=== PATIENT | male | born 1970 | race Caucasian/White ===

== ENCOUNTER 2020-02-02 16:22 | Emergency (ER) | payer OTHER, SELFPAY ==
--- NOTE | ~2020-02-02 | XR_ITS ---
EXAMINATION: XR chest 2V EXAM DATE: 02/02/2020 20:14 INDICATION: Cough, fatigue. Coronary artery disease. History of CT. TECHNIQUE: Frontal and lateral projections of the chest obtained and reviewed. Comparison is made to prior examination from 10/07/2017. FINDINGS: The lungs are clear. There are no pleural effusions. The cardiomediastinal silhouette is within normal limits. There is no pneumothorax suspected. The bones and soft tissues are unremarkab le. IMPRESSION: No acute cardiopulmonary findings. Reviewed, dictated and finalized at location A.
--- NOTE | ~2020-02-02 | XR_ITS ---
EXAMINATION: XR abdomen/kub 1V EXAM DATE: 02/02/2020 20:14 INDICATION: Hematuria. Left flank pain. TECHNIQUE: Frontal projection(s) of the abdomen for interpretation. Correlation is made to CT abdomen pelvis same date. FINDINGS: There is expected amount of colonic stool and gas. No small bowel dilation, nonobstructiv e bowel gas pattern. There are no suspicious calcifications identified. There is no organomegaly suspected. The bones are unremarkable. Lung bases are clear. IMPRESSION: Unremarkable abdomen x-ray exam. Reviewed, dictated and finalized at location A.
--- NOTE | ~2020-02-02 | CT_ITS ---
EXAMINATION: CT abdomen pelvis wo con EXAM DATE: 02/02/2020 19:58 INDICATION: Left flank pain. TECHNIQUE: Spiral CT of the abdomen and pelvis was performed without contrast. Axial, coronal and sag ittal images were reviewed. The dose-length product (DLP) for this examination was 568.07 mGy-cm. T he exposure was tailored according to patient size (auto mA exposure control), and iterative reconstr uction (ASIR) was used as additional dose reduction technique. Comparison is made to prior examinatio n from 01/01/2008. FINDINGS: There is no nephrolithiasis or hydronephrosis. The prostate is unremarkable. The bladder is unremarkable. The liver, spleen, adrenal glands and pancreas are unremarkable. Gallbladder is u nremarkable. No biliary obstruction. There is no retroperitoneal or pelvic lymphadenopathy. There is moderate-sized umbilical fat-containing hernia, herniated portion measuring 7 cm in diameter with the mouth measuring 3 cm. The appendix is normal. The stomach and small bowel are unremarkable. There is expected amount of c olonic stool. No free intraperitoneal gas. The heart is normal in size. There are no pericardial or pleural effusions. The lung bases are unremarkable. The bones are unremarkable. IMPRESSION: 1. No nephrolithiasis, hydronephrosis or acute intra-abdominal findings. 2. Moderate-sized umbilical fat-containing hernia. Reviewed, dictated and finalized at location A.
[2020-02-02 16:25] VITALS: BP 130/80; PULSE 99; RESP 18; TEMP 36.3; O2SAT 100
[2020-02-02 16:59] LABS: Hemoglobin 13.8 g/dL (14.0-18.0); Mean Corpuscular HGB Conc 33.7 g/dl (32-36); Mean Corpuscular Hemoglobin 27.4 pg (26-34); Mean Corpuscular Volume 81.5 fl (80-100); Mean Platelet Volume 9.5 fl (7.4-10.4); Platelet Count Result 201 k/mm3 (150-375); Red Blood Count 5.03 M/mm3 (4.6-6.20); Red Cell Distribution Width 13.2 % (11.5-14.5); White Blood Count 3.6 K/mm3 (4.5-10.0)
[2020-02-02 17:12] LABS: Add Urine Microscopic? YES; Appearance Urine Clear (Clear); Bilirubin Urine Negative (Negative); Blood Urine Negative (Negative); Color Urine Yellow (Yellow); Glucose Urine UA Negative (Negative); Ketones Urine Negative (Negative); Leukocyte Esterase Ur Negative LEU/UL (Negative); Mucus Urine Moderate /lpf; Nitrate Urine Negative (Negative); Protein Urine 1+ mg/dL (Negative); RBC Urine 0-2 /hpf (0-2); Specific Grav Ur 1.028 (1.001-1.035); Urobilinogen Urine Negative mg/dL (<2.0); WBC Urine 0-3 /hpf
[2020-02-02 17:33] LABS: Band Neutrophils Percent 10 % (0-6); Lymphocytes Absolute Manual 1.69 K/mm3 (1.1-4.5); Monocytes Absolute Manual 0.57 K/mm3 (0.1-0.90); Monocytes Percent Manual 16 % (3-9); Neutrophils Absolute Manual 1.33 K/mm3 (1.3-6.7); Neutrophils Percent Manual 27 % (46-73); Total Cells Counted 100
[2020-02-02 17:34] LABS: Atypical Lymphocytes Present; Giant Platelets Present; Platelet Estimate Adequate (Adequate)
[2020-02-02 17:49] LABS: Blood Urea Nitrogen 16 mg/dL (9-20); Calcium 9.1 mg/dL (8.4-10.2); Carbon Dioxide 24 mmol/L (22-30); Chloride 101 mmol/L (98-107); Estimated Glomerular Filt Rate > 60; Glucose 84 mg/dL (75-110); Potassium 4.3 mmol/L (3.4-5.0); Sodium 136 mmol/L (137-145)
--- NOTE | 2020-02-02 19:28 | ECG_ITS ---
Measurements Intervals [place] Rate: 72 P: 67 IA: 173 QRS: 64 QRSD: 82 T: 51 QT: 361 QTc: 396 Interpretive Statements SINUS RHYTHM BASELINE WANDER- I, V2 NORMAL ECG Electronically Signed On 02-03-2020 7:10:16 CDT by Emeka Tolentino D.O.
--- NOTE | 2020-02-02 19:29 | ED.GENADULT ---
HPI - General Adult General Chief complaint: Abdominal Pain Stated complaint: flank pain/blood in urine Time Seen by Provider: 02/02/20 19:03 Source: patient Mode of arrival: ambulatory Limitations: no limitations History of Present Illness HPI narrative: 49 yo male who presents with c/o left lower back pain intermittently since Sunday. Patient states he has been restless and having difficulty sleeping due to some left lower back pain. He also reports mild discomfort radiating to his left lower abdomen. His pain seems worse with movement. He denies numbness, tingling or weakness. He states that he went to Urgent care today and she reported that he has blood in his urine. He has not noticed blood in his urine but he has noticed that his urine will changed color. He denies fever or chills. He reports his pain is minimal now. He denies headache, shortness of breath. He states he only has a cough due to his allergies. HE denies chest pain. Onset (ago): day(s) (2) Quality: aching and dull Pain Consistency: intermittent Exacerbating factors: movement Related Data Home Medications Medication Instructions Recorded Confirmed aspirin 81 mg PO DAILY 02/02/20 atorvastatin 20 mg PO DAILY 02/02/20 evolocumab [Repatha SureClick] 140 mg SUBCUT ONCE 02/02/20 lisinopril 20 mg PO DAILY 02/02/20 loratadine [Claritin] 10 mg PO DAILY 02/02/20 metoprolol tartrate 12.5 mg PO BID 02/02/20 ticagrelor [Brilinta] 60 mg PO Q12H 02/02/20 Allergies Allergy/AdvReac Type Severity Reaction Status Date / Time No Known Allergies Allergy Verified 02/02/20 16:28 Review of Systems Review of Systems: All systems reviewed & are unremarkable except as noted in HPI and below Constitutional: Constitutional: Denies chills and Denies fever(s) Cardiovascular: Cardiovascular: Denies chest pain and Denies radiating jaw, neck or arm pain Respiratory: Respiratory: Reports cough (says due to allergies) and Denies dyspnea Gastrointestinal: Gastrointestinal: Reports abdominal pain, Reports constipation, Denies diarrhea, Reports nausea and Denies vomiting Genitourinary: Genitourinary: Reports urinary frequency Comments: change in color to urine PMFSH Past Medical History Medical History (Updated 02/03/20 @ 00:00 by Background Daemon) Coronary artery disease Hyperlipidemia Surgical History Surgical History (Updated 02/02/20 @ 19:31 by Lou Freeman MD) Stented coronary artery Exam Narrative: Exam Narrative: GENERAL: Well-appearing, well-nourished, and in no acute distress. HEAD: Normocephalic, atraumatic EYES: PERRLA and EOMI, conjunctiva clear without discharge THROAT:Mucous membranes moist, Oropharynx normal without erythema, exudate, peritonsillar swelling or fluctuance NECK: Supple, without lymphadenopathy or mass RESPIRATORY: No respiratory distress, Airway patent, Respirations non-labored, Clear to auscultation without rales, rhonchi or wheeze HEART: Regular rate and rhythm. No murmur heard. Normal peripheral pulses. ABDOMEN: Soft, nontender, nondistended, normal active bowel sounds. No masses. No rebound or guarding, No organomegaly. soft umbilical hernia EXTREMITIES: No edema, normal strength with full range of motion. SKIN: Warm, dry, normal color without rash NEURO: Alert and oriented x3. CN 2-12 grossly intact. No focal deficits. PSYCH: Normal mood and affect. Course Reevaluation(s) Reevaluation #1: I discussed with patient that his labs showed low wbc count and he should follow up with PCP for further evaluation . Date: 02/02/20 Time: 21:17 Vital Signs Vital signs: Vital Signs Temperature 97.3 F L 02/02/20 16:25 Pulse Rate 99 02/02/20 16:25 Respiratory Rate 18 02/02/20 16:25 Blood Pressure 130/80 02/02/20 16:25 Pulse Oximetry 100 02/02/20 16:25 Temperature 97.9 F 02/02/20 21:35 Pulse Rate 74 02/02/20 21:35 Respiratory Rate 16 02/02/20 21:35 Blood Pressure 114/66
[2020-02-02 19:50] LABS: Alanine Aminotransferase 55 U/L (4-50); Albumin Level 4.5 g/dL (3.5-5.1); Alkaline Phosphatase 86 U/L (38-126); Aspartate Amino Transferase 42 U/L (17-59); Bilirubin,Total 0.4 mg/dL (0.2-1.3); Lipase 321 U/L (23-300)
[2020-02-02 21:35] VITALS: BP 114/66; PULSE 74; RESP 16; TEMP 36.6; O2SAT 97
== END 2020-02-02 21:37 | disposition home or self-care (01) ==
PROVIDERS: Emergency Medicine; Emergency Provider General Practice; PCP Emergency Medicine
DX: M54.5 Low back pain (principal); I25.10 Atherosclerotic heart disease of native coronary artery without angina pectoris; E78.5 Hyperlipidemia, unspecified; Z95.1 Presence of aortocoronary bypass graft
CPT/HCPCS: 36415; 71046; 74018; 74176; 80048; 80076; 81001; 83690; 85025; 93005; 99284

== ENCOUNTER 2021-03-24 18:25 | Emergency (ER) | payer OTHER, SELFPAY ==
[2021-03-24] VITALS (22 sets, daily range): BP systolic 129–179; BP diastolic 80–98; PULSE 53–76; RESP 6–18; TEMP 36.3; O2SAT 90–100
--- NOTE | ~2021-03-24 | XR_ITS ---
EXAMINATION: XR chest 2V EXAM DATE: 03/24/2021 18:39 INDICATION: cp into left arm, dizziness, hx of hypertension and stents. TECHNIQUE: Frontal and lateral projections of the chest obtained and reviewed. Comparison is made to prior examination from 02/02/2020. FINDINGS: The lungs are clear. There are no pleural effusions. The cardiomediastinal silhouette is within normal limits. There is no pneumothorax suspected. The bones and soft tissues are unremarkab le. IMPRESSION: No acute cardiopulmonary findings. Reviewed, dictated and finalized at location A.
--- NOTE | 2021-03-24 18:32 | ECG_ITS ---
Measurements Intervals [place] Rate: 70 P: 69 NC: 146 QRS: 52 QRSD: 94 T: 30 QT: 381 QTc: 412 Interpretive Statements SINUS RHYTHM INCOMPLETE RIGHT BUNDLE BRANCH BLOCK BASELINE ARTIFACT- I, II, III, AVR, AVL, AVF, V1-V6 BORDERLINE ECG Electronically Signed On 03-24-2021 19:06:33 CDT by Emeka Tolentino D.O.
[2021-03-24 18:39] LABS: Basophils Percent Auto 0.6 % (0.2-1.2); Eosinophils Absolute Auto 0.1 K/mm3 (0-0.3); Eosinophils Percent Auto 0.9 % (0-4.4); Hematocrit 41.8 % (42.0-52.0); Hemoglobin 13.8 g/dL (14.0-18.0); Immature Granulocyte Absolute 0.05 K/mm3 (0.00-0.031); Immature Granulocyte Percent A 0.7 % (0-0.5); Lymphocytes Absolute Auto 1.68 K/mm3 (0.9-3.2); Lymphocytes Percent Auto 24.7 % (18.3-44.2); Mean Corpuscular Hemoglobin 27.4 pg (26-34); Mean Corpuscular Volume 83.1 fl (80-100); Mean Platelet Volume 8.8 fl (7.4-10.4); Monocytes Absolute Auto 0.7 K/mm3 (0.1-0.6); Monocytes Percent Auto 10.4 % (2.6-8.5); Neutrophils Absolute Auto 4.3 K/mm3 (1.3-6.7); Neutrophils Percent Auto 62.7 % (45.5-73.1); Platelet Count Result 277 k/mm3 (150-375); Red Blood Count 5.03 M/mm3 (4.6-6.20); Red Cell Distribution Width 13.8 % (11.5-14.5); White Blood Count 6.8 K/mm3 (4.5-10.0)
--- NOTE | 2021-03-24 18:45 | ED.GENADULT ---
HPI - General Adult General Chief complaint: Chest Pain Stated complaint: Chest Pain Time Seen by Provider: 03/24/21 18:42 Source: patient Mode of arrival: ambulatory Limitations: no limitations History of Present Illness HPI narrative: Patient is here for evaluation of chest pain and left arm tingling that started 4 days ago. He was also having some lightheadedness, it is all intermittent. He has a cardiac history of 2 cardiac stents last placed at least 2 years ago. Saw his baling machine tender last in September and he did not call him regarding this episode. He is taking all his medications as prescribed. Onset (ago): day(s) Radiation: non-radiation Pain Consistency: intermittent Relieving factors: none Exacerbating factors: none Treatments prior to arrival: none Related Data Home Medications Medication Instructions Recorded Confirmed aspirin 81 mg PO DAILY 02/02/20 atorvastatin 20 mg PO DAILY 02/02/20 evolocumab [Repatha SureClick] 140 mg SUBCUT ONCE 02/02/20 lisinopril 20 mg PO DAILY 02/02/20 metoprolol tartrate 12.5 mg PO BID 02/02/20 ticagrelor [Brilinta] 60 mg PO Q12H 02/02/20 fluticasone propionate [Flonase] 1 spray INTRANASAL BID 03/24/21 Allergies Allergy/AdvReac Type Severity Reaction Status Date / Time No Known Allergies Allergy Verified 03/24/21 18:33 Review of Systems Review of Systems: All systems reviewed & are unremarkable except as noted in HPI and below PMFSH Past Medical History Medical History Coronary artery disease Hyperlipidemia Surgical History Surgical History Stented coronary artery Social History Social History Gender identity (if verbalized by the patient): Male Course Course Emergency Course: Reviewed labs with patient. He states that he has been able to sleep while here, but occasionally he feels his heart flutter . Labs reviewed with patient again they were all normal. As was his EKG. Patient has not stood up since he has been here so we will do orthostatic blood pressures make sure he does not feel lightheaded anymore. Will recommend follow-up with his baling machine tender at the first available date. blood pressures reassuring. Vital Signs Vital signs: Vital Signs Temperature 36.3 C L 03/24/21 18:29 Pulse Rate 74 03/24/21 18:29 Respiratory Rate 18 03/24/21 18:29 Blood Pressure 179/91 H 03/24/21 18:29 Pulse Oximetry 98 03/24/21 18:29 Temperature 36.3 C L 03/24/21 18:29 Pulse Rate 63 03/24/21 22:02 Respiratory Rate 6 L 03/24/21 22:02 Blood Pressure 169/92 H 03/24/21 22:02 Pulse Oximetry 95 03/24/21 22:02 Medical Decision Making Vital Signs Vital Signs: Vital Signs Temperature 36.3 C L 03/24/21 18:29 Pulse Rate 74 03/24/21 18:29 Respiratory Rate 18 03/24/21 18:29 Blood Pressure 179/91 H 03/24/21 18:29 Pulse Oximetry 98 03/24/21 18:29 Temperature 36.3 C L 03/24/21 18:29 Pulse Rate 63 03/24/21 22:02 Respiratory Rate 6 L 03/24/21 22:02 Blood Pressure 169/92 H 03/24/21 22:02 Pulse Oximetry 95 03/24/21 22:02 Lab Data Result diagrams: 03/24/21 18:34 03/24/21 18:34 Labs: Lab Results 03/24/21 03/24/21 03/24/21 Range/Units 18:34 18:34 18:34 WBC 6.8 (4.5-10.0) K/mm3 RBC 5.03 (4.6-6.20) M/mm3 Hgb 13.8 L (14.0-18.0) g/dL Hct 41.8 L (42.0-52.0) % MCV 83.1 (80-100) fl MCH 27.4 (26-34) pg MCHC 33.0 (32-36) g/dl RDW 13.8 (11.5-14.5) % Plt Count 277 (150-375) k/mm3 MPV 8.8 (7.4-10.4) fl Immature Gran % (Auto) 0.7 H (0-0.5) % Neut % (Auto) 62.7 (45.5-73.1) % Lymph % (Auto) 24.7 (18.3-44.2) % Mclean % (Auto) 10.4 H (2.6-8.5) % Eos % (Auto) 0.9 (0-4.4) % Baso % (Auto) 0.6 (0.2-1.2) % Lymph # (Auto) 1.68 (0.9-3.2) K/mm3 Mclean # (Auto) 0.7 H (0.1-0.6) K/mm3 Eos # (Auto) 0.1
[2021-03-24] MEDS: ASPIRIN 81 MG CHEWABLE TABLET 243 MG PO (18:54)
[2021-03-24 18:56] LABS: Anion Gap 10 mmol/L (8-16); Blood Urea Nitrogen 17 mg/dL (9-20); Calcium 9.6 mg/dL (8.4-10.2); Carbon Dioxide 23 mmol/L (22-30); Chloride 107 mmol/L (98-107); Estimated CRCL calculation 108 ml/min; Estimated Glomerular Filt Rate > 60; Glucose 82 mg/dL (75-110); Potassium 3.9 mmol/L (3.4-5.0); Sodium 140 mmol/L (137-145)
[2021-03-24 19:08] LABS: Troponin I < 0.012 ng/mL (0.000-0.034)
[2021-03-24 19:09] LABS: INR 0.9; Partial Thromboplastin Time 25.8 SECONDS (22.3-36.8); Prothrombin Time 12.5 Seconds (11.1-14.7)
[2021-03-24 22:18] LABS: Troponin I < 0.012 ng/mL (0.000-0.034)
== END 2021-03-24 23:07 | disposition home or self-care (01) ==
PROVIDERS: Emergency Provider Emergency Medicine; PCP Emergency Medicine
DX: R07.9 Chest pain, unspecified (principal); R42 Dizziness and giddiness; I25.10 Atherosclerotic heart disease of native coronary artery without angina pectoris; E78.5 Hyperlipidemia, unspecified; Z95.5 Presence of coronary angioplasty implant and graft; Z79.82 Long term (current) use of aspirin; I45.10 Unspecified right bundle-branch block
CPT/HCPCS: 36415; 71046; 80048; 84484; 85025; 85610; 85730; 93005; 99284; A9270

== ENCOUNTER 2021-05-18 01:56 | Day surgery (SDC) | payer OTHER, SELFPAY ==
[2021-05-13 15:54] VITALS: BMI 30.9
--- NOTE | 2021-05-17 13:39 | WPDANESEPPF ---
Anes - Initial Pre Proc Eval Procedure: Operation Date: 05/18/21 13:30 Proposed Procedures p Patricia-Umbilical Ventral Hernia Repair with Mesh - Eddy Cleary MD Date/Time: 05/17/21 13:39 Surgeon: Eddy Cleary MD Pre Op Diagnosis: ventral hernia Patient Data Age: 50 Gender: M Height: 1.78 m Weight: 97.98 kg Allergies Allergy/AdvReac Type Severity Reaction Status Date / Time No Known Allergies Allergy Verified 05/18/21 11:59 Home Medications Medication Instructions Recorded Confirmed Type aspirin 81 mg PO DAILY 02/02/20 05/18/21 History atorvastatin 20 mg PO DAILY 02/02/20 05/18/21 History evolocumab [Repatha SureClick] 140 mg SUBCUT ONCE 02/02/20 05/18/21 History lisinopril 20 mg PO DAILY 02/02/20 05/18/21 History metoprolol tartrate 12.5 mg PO BID 02/02/20 05/18/21 History ticagrelor [Brilinta] 60 mg PO DAILY 02/02/20 05/18/21 History fluticasone propionate [Flonase] 1 spray INTRANASAL DAILY 03/24/21 05/18/21 History Patient hx anesthesia problems: none Family hx anesthesia problems: none PMFSH Past Medical History Medical History (Updated 05/17/21 @ 13:40 by Bradley Ashby DO) Coronary artery disease Hx of myocardial infarction 2011 Hyperlipidemia Hypertension Surgical History Surgical History (Updated 05/17/21 @ 13:40 by Bradley Ashby DO) Stented coronary artery x2 Family History Family History (Updated 04/28/21 @ 09:22 by Shira Means) Father Heart disease Metaplastic carcinoma Diabetes mellitus Mother Skin cancer Arthritis Sibling Heart disease Unknown Diabetes mellitus Heart disease Hypertension Social History Social History Smoking packs per day: 2 Smoking cigarettes per day: 40.0 Years smoked: 21 Smoking pack-years: 42.00 Smoking status: Former smoker Tobacco type: cigarettes Second hand tobacco smoke exposure: No Alcohol intake: current Drinks per week: 5 Alcohol use details: beer Substance use: never Substance use type: does not use Living arrangements: with family Gender identity (if verbalized by the patient): Male Spiritual care concerns: No Anes - Eval Final PreProcedure Day of Procedure 05/17/21 13:39 Patient weight: obese Heart: regular rate and rhythm Lungs: clear to auscultation and normal air movement Airway: Mallampati scale class II Neurological: alert and oriented Last oral intake: >/= 8 hours ASA classification: III Emergent: no Anesthetic plan: proceed Anesthesia type and monitoring: general GIVS and standard monitoring Informed Consent: The patient's anesthetic plan and its attendant risks and benefits were discussed with the patient/family/POA. Questions were solicited and answers provided to the satisfaction of the patient/family/POA.
[2021-05-18 12:01] VITALS: BP 150/69; PULSE 71; RESP 20; TEMP 36.4; O2SAT 99
[2021-05-18] MEDS: LACTATED RINGERS 1,000 ML 30 ML IV CONT (12:20)
[2021-05-18] MEDS: ACETAMINOPHEN 500 MG TABLET 1000 MG PO (12:38)
[2021-05-18] MEDS: KETOROLAC 15 MG/ML VIAL (*BKC) IV PUSH (12:39)
--- NOTE | 2021-05-18 14:33 | WPDHPUPDATE1 ---
History and Physical Update Update Date/Time: 05/18/21 14:33 History and Physical has been reviewed, including an updated exam of the patient. There are NO changes in the patient's condition. Risks, benefits, and alternatives have been discussed and questions answered. Patient agrees to proceed with procedure.
[2021-05-18] MEDS: ceFAZolin 2 GM/D5W 50 ML 2 GM/50 ML BAG IVPB (14:51)
[2021-05-18 16:00] VITALS: BP 131/80; PULSE 67; RESP 16; O2SAT 98
[2021-05-18 16:30] VITALS: BP 132/72; PULSE 64; RESP 16
--- NOTE | 2021-05-18 16:50 | P.OP_ITS ---
Procedure Note - Detailed Date of Procedure 05/18/21 Pre-op Diagnosis Large umbilical hernia Post-op Diagnosis same Procedure Performed Repair umbilical hernia with 6.6 cm Parietex underlay mesh Surgeon Eddy Cleary MD Organ Teacher TOSIN Lee Anesthesia general and local (0.5% Marcaine) Indications Patient presented with a painful large hernia in the umbilical area. It was too tender to reduce and has reddened skin overlying the hernia bulge. He is taken to surgery now for repair with mesh. Findings Large umbilical hernia with hernia defect about 2 cm in diameter. Description of Procedure Patient was checked in the preoperative holding area. He was taken to surgery and IV sedation was administered. Prep and drape was carried out. The proposed incision was marked along the upper margin of the umbilicus. Local was infiltrated into the area of the anticipated incision and in the deeper subcutaneous tissues. Incision was made dissection was carried down through the subcutaneous. The hernia sac was found easily. It was dissected free from the rest of the subcutaneous. I then dissected the umbilical skin off the hernia sac. I dissected completely around the neck of the hernia. More local was then infiltrated into the neck of the hernia and to the adjacent fascia. I then used the cautery to divide the hernia sac at its neck. I divided it circumferentiall y. Once the sac was completely freed it was discarded. There was some omentum in the hernia and this was reduced back into the abdomen. I placed a finger in the hernia defect and checked for any adhesions in the nearby area to the anterior abdominal wall. There were none. No other hernias were detected either. I then infiltrated additional local all around the fascia at the area of the hernia. I undermined the subcutaneous all around the hernia defect. A 6.6 cm Parietex [place] was chosen. It was placed in the defect and then centered symmetrically. 0 Ethibond suture were then used to place cranial and caudal transfascial sutures. These sutures were placed in such a fashion that when tied they advanced the edges of the hernia defect towards 1 another. I then placed lateral transfascial sutures again with 0 Ethibond. Finally the defect was closed with [id number] mattress suture of 0 Ethibond which also incorporated a bit of the mesh. Additional local was infiltrated all around the area of the repair. I sutured the umbilical skin to the fascia with 3-0 Vicryl suture. The subcutaneous was closed with interrupted 3 0 Vicryl suture. The skin was approximated with 3-0 and 4-0 Vicryl subcuticular interrupted skin suture. The wound was finally closed at the skin level with a running 4-0 Monocryl skin suture. The wound was dressed with Exofin surgical adhesive. The patient was awakened and taken to recovery in good condition. Sponge and needle counts were correct x2. Implants 6.6 cm Parietex hernia mesh Estimated Blood Loss -5.0 Drains No Packing No Pathology none sent Complications None Condition stable Disposition same day
== END 2021-05-18 17:05 | disposition home or self-care (01) ==
PROVIDERS: PCP Emergency Medicine; Visit Provider Surgery
PROC: (CPT 49585; principal; 2021-05-18 13:30)
DX: K42.9 Umbilical hernia without obstruction or gangrene (principal); I10 Essential (primary) hypertension; E78.5 Hyperlipidemia, unspecified; I25.10 Atherosclerotic heart disease of native coronary artery without angina pectoris; I25.2 Old myocardial infarction; Z95.5 Presence of coronary angioplasty implant and graft; E66.9 Obesity, unspecified; Z68.31 Body mass index [BMI] 31.0-31.9, adult; Z87.891 Personal history of nicotine dependence; Z79.82 Long term (current) use of aspirin; Z79.899 Other long term (current) drug therapy
CPT/HCPCS: 49585; A9270; C1781; J0690; J1885; J2250; J2405; J2704; J3010; J7120

== ENCOUNTER 2021-06-14 11:22 | Outpatient (CLI) | payer OTHER, SELFPAY ==
--- NOTE | ~2021-06-14 | US_ITS ---
EXAMINATION: US soft tissue abdomen DATE: 06/14/2021 11:50 INDICATION: Mass/bulge/lump at the umbilicus post prior hernia repair. TECHNIQUE: Multiple grayscale and Doppler ultrasound images of the region of concern at the anterior abdominal wall were obtained. COMPARISON: None FINDINGS: At the region of concern is a 6.4 x 6.5 x 6.2 cm complex loculated fluid collection which extends to within 2 mm of the skin surface. There are internal hypoechoic regions without internal vascularity a nd surrounding internal reticular pattern of weblike septations with appearance most consistent with an evolving hematoma. IMPRESSION: 1. 6.4 x 6.5 x 6.2 cm complex subcutaneous fluid collection at the region of concern with appearance most consistent with hematoma. Reviewed, dictated and finalized at location A. IMPRESSION: 1. 6.4 x 6.5 x 6.2 cm complex subcutaneous fluid collection at the region of co ncern with appearance most consistent with hematoma.
== END 2021-06-14 11:23 | disposition home or self-care (01) ==
LOC: ANHIMG 11:26
PROVIDERS: PCP Emergency Medicine; Visit Provider Surgery
DX: R19.00 Intra-abdominal and pelvic swelling, mass and lump, unspecified site (principal); M96.842 Postprocedural seroma of a musculoskeletal structure following a musculoskeletal system procedure
CPT/HCPCS: 76705

== ENCOUNTER 2022-07-17 03:00 | Day surgery (SDC) | payer OTHER, SELFPAY ==
[2022-07-14 15:41] VITALS: BMI 29.5
[2022-07-17] VITALS (9 sets, daily range): BP systolic 109–128; BP diastolic 59–83; PULSE 48–57; RESP 12–18; TEMP 37.1; O2SAT 96–100; BMI 29.0
[2022-07-17 10:35] LABS: Basophils Percent Auto 0.8 % (0.2-1.2); Eosinophils Absolute Auto 0.1 K/mm3 (0-0.3); Hematocrit 41.8 % (42.0-52.0); Hemoglobin 13.8 g/dL (14.0-18.0); Immature Granulocyte Absolute 0.02 K/mm3 (0.00-0.031); Immature Granulocyte Percent A 0.4 % (0-0.5); Lymphocytes Absolute Auto 1.12 K/mm3 (0.9-3.2); Lymphocytes Percent Auto 21.8 % (18.3-44.2); Mean Corpuscular Hemoglobin 28.1 pg (26-34); Mean Corpuscular Volume 85.1 fl (80-100); Mean Platelet Volume 8.7 fl (7.4-10.4); Monocytes Absolute Auto 0.6 K/mm3 (0.1-0.6); Monocytes Percent Auto 12.1 % (2.6-8.5); Neutrophils Absolute Auto 3.3 K/mm3 (1.3-6.7); Neutrophils Percent Auto 63.9 % (45.5-73.1); Platelet Count Result 293 k/mm3 (150-375); Red Blood Count 4.91 M/mm3 (4.6-6.20); Red Cell Distribution Width 14.2 % (11.5-14.5); White Blood Count 5.1 K/mm3 (4.5-10.0)
[2022-07-17 10:57] LABS: Anion Gap 10 mmol/L (8-16); Blood Urea Nitrogen 17 mg/dL (9-20); Calcium 8.8 mg/dL (8.4-10.2); Carbon Dioxide 22 mmol/L (22-30); Chloride 105 mmol/L (98-107); Estimated CRCL calculation 100 ml/min; Estimated Glomerular Filt Rate > 60; Glucose 93 mg/dL (65-110); Potassium 3.9 mmol/L (3.4-5.0); Sodium 137 mmol/L (137-145)
--- NOTE | 2022-07-17 11:18 | WPDMODSED ---
Moderate Sedation Note-Pt Data Patient Data Diagnosis: Coronary artery disease with previous PCI Present Complaint: Intermittent chest pain Procedure to be performed/Plan: Left heart catheterization Allergies Allergy/AdvReac Type Severity Reaction Status Date / Time No Known Allergies Allergy Verified 07/17/22 10:29 Home Medications Medication Instructions Recorded Confirmed Type aspirin 81 mg tablet,delayed 81 mg PO DAILY 02/02/20 07/14/22 History release atorvastatin 40 mg tablet 20 mg PO DAILY 02/02/20 07/14/22 History evolocumab 140 mg/mL subcutaneous 140 mg subcut ONCE 02/02/20 07/14/22 History pen injector (Adrian King) lisinopril 20 mg tablet 10 mg PO DAILY 02/02/20 07/14/22 History metoprolol tartrate 25 mg tablet 12.5 mg PO BID 02/02/20 07/14/22 History ticagrelor 60 mg tablet (Brilinta) 60 mg PO BID 02/02/20 07/14/22 History fluticasone propionate 50 1 spray intranasal DAILY PRN 03/24/21 07/14/22 History mcg/actuation nasal allergies spray,suspension buspirone 7.5 mg tablet 7.5 mg PO BID 07/14/22 07/14/22 History cholecalciferol (vitamin D3) 125 10,000 unit PO DAILY 07/14/22 07/14/22 History mcg (5,000 unit) tablet (Vitamin D3) diphenhydramine HCl 25 mg tablet PRN allergic type reactions 07/14/22 History escitalopram oxalate 10 mg tablet 10 mg PO DAILY 07/14/22 07/14/22 History loratadine 10 mg tablet 10 mg PO DAILY PRN allergies 07/14/22 07/14/22 History nitroglycerin 0.4 mg sublingual 0.4 mg sublingual PRN Chest Pain 07/14/22 History tablet triamcinolone acetonide 0.5 % 1 applic topical PRN various skin 07/14/22 History topical ointment issues Current Medications: Active Medications Sodium Chloride (Normal Saline Iv) 500 mls @ 100 mls/hr IV CONT .Q5H ADALBERTO Sedation/Anesthesia: No previous sedation/anesthesia problems (including family history). [facility] Past Medical History Medical History (Updated 09/01/21 @ 09:45 by Amy Sprague) Coronary artery disease Hx of myocardial infarction 2011 Hyperlipidemia Hypertension Surgical History Surgical History (Updated 09/01/21 @ 09:45 by Amy Sprague) H/O umbilical hernia repair 05/18/21 Repair umbilical hernia with 6.6 cm Parietex underlay mesh Stented coronary artery x2 Family History Family History Father Heart disease Metaplastic carcinoma Diabetes mellitus Mother Skin cancer Arthritis Sibling Heart disease Unknown Diabetes mellitus Heart disease Hypertension Social History Social History Smoking packs per day: 2 Smoking cigarettes per day: 40.0 Years smoked: 21 Smoking pack-years: 42.00 Smoking status: Former smoker Tobacco type: cigarettes Second hand tobacco smoke exposure: No Additional smoking assessment comments: quit in 2010 used to smoke 2 ppd for approximately 18 years Alcohol intake: current Drinks per week: 5 Alcohol use details: beer Substance use: current Substance use type: marijuana Last use: uses gummies daily (was very vague when answering these questions) Living arrangements: with family Additional living arrangements comments: lives with and kids Gender identity (if verbalized by the patient): Male Spiritual care concerns: No Mod Sed Physical Exam Physical Exam Pre Procedural Exam: Normal: Appearance, Neck, Throat, Airway, Lungs, Heart Size, Heart Rate, Heart Rhythm, Neuro Exam and Extremities Hours since solid foods: 12 Hours since liquid intake: 12 Mallampati Classification: class II Internal Medicine - PN: Obj Da Vital Signs Vital Signs: Vital Signs - 24 hr 07/17/22 10:59 Temperature 37.1 C Pulse Rate 55 L Respiratory Rate 18 Blood Pressure 113/59 L Pulse Oximetry 99 Oxygen Delivery Room Air Meds/Results Medications: Active Medications Generic Name Dose Route Start La
--- NOTE | 2022-07-17 12:17 | WPDCARDPROC ---
Cardiac Cath Procedure Note Date of procedure:: 07/17/22 Performing physician:: Urban Patricio MD Indication:: Intermittent chest pain coronary artery disease with previous PCI Brief clinical history:: this is a 51-year-old man with coronary disease having undergone previous eventual revascularization of the LAD in the setting of acute coronary syndrome 11 years ago. Recently in the office he has been reporting intermittent episodes of nonexertional chest pain which have raised concern regarding his coronary disease and a follow-up angiogram has been recommended Procedure Procedure performed:: left ventriculogram coronary angiogram Angio-Seal to right femoral artery Sedation/Medication given:: fentanyl 50 mg Versed 2 mg case start time 11:49 a.m. case end time 12:10 p.m. sedation provided by Myrna Lopez RN, trained observer Access site:: right femoral artery Estimated blood loss:: 25 cc Procedure note:: patient was brought to the cardiac catheterization lab in the postabsorptive state where the right femoral triangle was prepared and draped in normal fashion. Anesthesia was provided with 1% lidocaine infiltrated locally. Using the modified Seldinger technique a 5 English sheath was placed the right common femoral artery and a 5 English vascular sheath was placed. After this left heart catheterization carried out. I 1st used a 5 English angled pigtail catheter to document left-sided hemodynamics and to inject LV g in the 30 degree RODRIGUEZ projection. After this the right coronary artery was engaged and injected using a standard 5 English JR4 catheter. Left coronary was engaged and injected using a standard 5 English FL4 catheter. The cineangiograms were then reviewed case was an angiogram was performed of the femoral artery through the sheath after which a 6 English Angio-Seal device was deployed at the puncture site with a good hemostatic result. 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 Findings:: Hemodynamics: Central aortic pressure is 118/60 left ventricle 118/0 end-diastolic pressure 14 there is no gradient on pullback across the aortic valve. Left ventricle: The LV is normal in size the anterior wall is modestly hypodynamic overall ejection fraction is normal estimated ejection fraction of 50%. The left main coronary artery is short but nicely patent the left anterior descending is a medium caliber artery that extends down to and just around the apex. There is a long area a previously deployed stent material in the proximal LAD. There is no significant stenosis in the LAD. There is minimal loss of lumen in the stented segment but less than 10-20% stenosis. There is a some proximal septal perforating complex taking its origin in this stented segment obviously jailed by the stent that has an ostial 80-90% stenosis. There was NANDO 3 flow Throughout the LAD. Circumflex is a moderate caliber artery, codominant to the posterior circulation. The circumflex marginal and posterior branches have mild luminal irregularities but no significant lesions are seen. The right coronary artery is small to medium in caliber codominant terminating in an RPDA. The right coronary artery angiographically is non diseased. Conclusion:: 1. Codominant coronary circulation with no significant stenotic lesions identified except for the ostium of the septal perforating complex described above. 2. Remaining patency of the LAD that was stented in the remote past. There is a long segment of stent history of the proximal LAD down to the midportion of the artery 3. mild anterior hypokinesia overall normal ejection fraction 4. based on these findings patient has intermittent nonexertional chest pain syndrome is not likely to be ischemically related Urban Patricio MD [facility]
== END 2022-07-17 15:00 | disposition home or self-care (01) ==
PROVIDERS: PCP Emergency Medicine; Visit Provider Specialist
PROC: 4A023N7 Measurement of Cardiac Sampling and Pressure, Left Heart, Percutaneous Approach (ICD-10-PCS; CPT 93452; principal; 2022-07-17 11:30)
DX: R07.9 Chest pain, unspecified (principal); I25.10 Atherosclerotic heart disease of native coronary artery without angina pectoris; Z95.5 Presence of coronary angioplasty implant and graft; I25.2 Old myocardial infarction; I10 Essential (primary) hypertension; E78.5 Hyperlipidemia, unspecified; Z87.891 Personal history of nicotine dependence; F12.90 Cannabis use, unspecified, uncomplicated; Z79.82 Long term (current) use of aspirin; Z79.01 Long term (current) use of anticoagulants
CPT/HCPCS: 36415; 80048; 85025; 93458; C1760; C1887; C1894; G0269; J1644; J2250; J3010; J7040

== ENCOUNTER 2022-07-29 12:19 | Emergency (ER) | payer OTHER, SELFPAY ==
[2022-07-29 12:38] VITALS: BP 138/82; PULSE 60; RESP 18; TEMP 36.4; O2SAT 98
--- NOTE | 2022-07-29 13:19 | ED.WOUNDLAC ---
HPI - Wound/Laceration General Chief Complaint: Wound/Laceration Stated Complaint: Cut Finger on Lt Hand Time Seen by Provider: 07/29/22 13:01 Source: patient Mode of arrival: ambulatory Limitations: no limitations History of Present Illness HPI narrative: Patient presents today complaining of a laceration to his left 5th finger that was sustained at work at 11:30 a.m. this morning. He is up-to-date on his tetanus vaccine. He has not tried any [id number] treatment prior to arrival. Related Data Home Medications Medication Instructions Recorded Confirmed aspirin 81 mg tablet,delayed 81 mg PO DAILY 02/02/20 07/14/22 release atorvastatin 40 mg tablet 20 mg PO DAILY 02/02/20 07/14/22 evolocumab 140 mg/mL subcutaneous 140 mg subcut ONCE 02/02/20 07/14/22 pen injector (Adrian King) lisinopril 20 mg tablet 10 mg PO DAILY 02/02/20 07/14/22 metoprolol tartrate 25 mg tablet 12.5 mg PO BID 02/02/20 07/14/22 ticagrelor 60 mg tablet (Brilinta) 60 mg PO BID 02/02/20 07/14/22 fluticasone propionate 50 1 spray intranasal DAILY PRN 03/24/21 07/14/22 mcg/actuation nasal allergies spray,suspension buspirone 7.5 mg tablet 7.5 mg PO BID 07/14/22 07/14/22 cholecalciferol (vitamin D3) 125 10,000 unit PO DAILY 07/14/22 07/14/22 mcg (5,000 unit) tablet (Vitamin D3) diphenhydramine HCl 25 mg tablet PRN allergic type reactions 07/14/22 escitalopram oxalate 10 mg tablet 10 mg PO DAILY 07/14/22 07/14/22 loratadine 10 mg tablet 10 mg PO DAILY PRN allergies 07/14/22 07/14/22 nitroglycerin 0.4 mg sublingual 0.4 mg sublingual PRN Chest Pain 07/14/22 tablet triamcinolone acetonide 0.5 % 1 applic topical PRN various skin 07/14/22 topical ointment issues Allergies Allergy/AdvReac Type Severity Reaction Status Date / Time No Known Allergies Allergy Verified 07/29/22 12:24 Review of Systems Review of Systems: CONSTITUTIONAL: Denies body aches, fever, chills, or sweats. EYES: Denies visual changes, redness, or discharge. ENT: Denies rhinorrhea, congestion, sore throat, or otalgia. CARDIOVASCULAR: Denies chest pain, palpitations, or edema. RESPIRATORY: Denies cough or dyspnea. GASTROINTESTINAL: Denies abdominal pain, nausea, vomiting, or diarrhea. GENITOURINARY: Denies dysuria or hematuria. SKIN: + finger laceration MUSCULOSKELETAL: Denies back pain, joint pain, or myalgia. NEUROLOGIC: Denies headache, numbness, tingling, or weakness. PSYCH: Denies depression or anxiety. [facility] Past Medical History Medical History Coronary artery disease Hx of myocardial infarction 2011 Hyperlipidemia Hypertension Surgical History Surgical History H/O umbilical hernia repair 05/18/21 Repair umbilical hernia with 6.6 cm Parietex underlay mesh Stented coronary artery x2 Family History Family History Father Heart disease Metaplastic carcinoma Diabetes mellitus Mother Skin cancer Arthritis Sibling Heart disease Unknown Diabetes mellitus Heart disease Hypertension Social History Social History Smoking packs per day: 2 Smoking cigarettes per day: 40.0 Years smoked: 21 Smoking pack-years: 42.00 Smoking status: Former smoker Tobacco type: cigarettes Second hand tobacco smoke exposure: No Additional smoking assessment comments: quit in 2010 used to smoke 2 ppd for approximately 18 years Alcohol intake: current Drinks per week: 5 Alcohol use details: beer Substance use: current Substance use type: marijuana Last use: uses gummies daily (was very vague when answering these questions) Additional living arrangements comments: lives with and kids Gender identity (if verbalized by the patient): Male Spiritual care concerns: No Co
== END 2022-07-29 13:30 | disposition home or self-care (01) ==
PROVIDERS: Emergency Provider Nurse Practitioner; PCP Emergency Medicine
DX: S61.217A Laceration without foreign body of left little finger without damage to nail, initial encounter (principal); X58.XXXA Exposure to other specified factors, initial encounter; Y99.0 Civilian activity done for income or pay; Z87.891 Personal history of nicotine dependence; I25.10 Atherosclerotic heart disease of native coronary artery without angina pectoris; I25.2 Old myocardial infarction; E78.2 Mixed hyperlipidemia; I10 Essential (primary) hypertension; Z79.82 Long term (current) use of aspirin
CPT/HCPCS: 12001; 99212; G0463

== ENCOUNTER 2022-08-21 01:30 | Day surgery (SDC) | payer OTHER, SELFPAY ==
[2022-08-09 14:30] VITALS: BMI 29.5
--- NOTE | 2022-08-19 11:25 | WPDANESEPPF ---
Anes - Initial Pre Proc Eval Procedure: Operation Date: 08/21/22 09:00 Proposed Procedures p Colonoscopy - Rojas Meneses MD Date/Time: 08/19/22 11:25 Surgeon: Rojas Meneses MD Pre Op Diagnosis: Change in bowel habits Patient Data Age: 52 Gender: M Height: 1.78 m Weight: 93.5 kg Allergies Allergy/AdvReac Type Severity Reaction Status Date / Time No Known Allergies Allergy Verified 08/21/22 07:47 Home Medications Medication Instructions Recorded Confirmed Type aspirin 81 mg tablet,delayed 81 mg PO DAILY 02/02/20 08/21/22 History release atorvastatin 40 mg tablet 20 mg PO DAILY 02/02/20 08/21/22 History evolocumab 140 mg/mL subcutaneous 140 mg subcut DIRECTED 02/02/20 08/21/22 History pen injector (Adrian Joyick) lisinopril 20 mg tablet 10 mg PO DAILY 02/02/20 08/21/22 History metoprolol tartrate 25 mg tablet 12.5 mg PO BID 02/02/20 08/21/22 History ticagrelor 60 mg tablet (Brilinta) 60 mg PO BID 02/02/20 08/21/22 History fluticasone propionate 50 1 spray intranasal DAILY PRN 03/24/21 08/21/22 History mcg/actuation nasal allergies spray,suspension buspirone 7.5 mg tablet 7.5 mg PO BID 07/14/22 08/21/22 History cholecalciferol (vitamin D3) 125 10,000 unit PO DAILY 07/14/22 08/21/22 History mcg (5,000 unit) tablet (Vitamin D3) escitalopram oxalate 10 mg tablet 10 mg PO DAILY 07/14/22 08/21/22 History Patient hx anesthesia problems: none Family hx anesthesia problems: none Results Review: All pre-operative results and documents have been reviewed as part of the pre-operative evaluation. [facility] Past Medical History Medical History Coronary artery disease Hx of myocardial infarction 2011 Hyperlipidemia Hypertension Surgical History Surgical History H/O umbilical hernia repair 05/18/21 Repair umbilical hernia with 6.6 cm Parietex underlay mesh Stented coronary artery x2 Family History Family History Father Heart disease Metaplastic carcinoma Diabetes mellitus Mother Skin cancer Arthritis Sibling Heart disease Unknown Diabetes mellitus Heart disease Hypertension Social History Social History Smoking packs per day: 2 Smoking cigarettes per day: 40.0 Years smoked: 21 Smoking pack-years: 42.00 Smoking status: Former smoker Tobacco type: cigarettes Second hand tobacco smoke exposure: No Additional smoking assessment comments: quit in 2010 used to smoke 2 ppd for approximately 18 years Alcohol intake: current Drinks per week: 5 Alcohol use details: weekly usage varies Substance use: current Substance use type: marijuana Last use: uses gummies daily (was very vague when answering these questions) Living arrangements: with family Additional living arrangements comments: lives with and kids Gender identity (if verbalized by the patient): Male Spiritual care concerns: No Anes - Eval Final PreProcedure Day of Procedure 08/19/22 11:25 Patient weight: obese Heart: regular rate and rhythm Lungs: clear to auscultation and normal air movement Airway: Mallampati scale class II Neurological: alert and oriented Last oral intake: >/= 8 hours ASA classification: III Emergent: no Anesthetic plan: proceed Anesthesia type and monitoring: general GIVS and standard monitoring Results Review: All pre-operative results and documents have been reviewed as part of the pre-operative evaluation. Informed Consent: The patient's anesthetic plan and its attendant risks and benefits were discussed with the patient/family/POA. Questions were solicited and answers provided to the satisfaction of the patient/family/POA.
[2022-08-21 07:40] VITALS: BP 125/74; PULSE 59; RESP 18; TEMP 36.2; O2SAT 100; BMI 28.2
[2022-08-21] MEDS: LACTATED RINGERS 1,000 ML 150 ML IV CONT (07:57)
--- NOTE | 2022-08-21 08:31 | PM.HPGS ---
History of Present Illness History of Present Illness Consent: Risks, benefits, and alternatives have been discussed and questions answered. Patient agrees to proceed with procedure. Chief complaint: Change in bowel habits Narrative: Kwesi Goodwin is a 52 year old male here for first screening colonoscopy Review of Systems Constitutional: Constitutional: Denies headache(s) and Denies weakness Eyes: Eyes: Denies blurry vision ENT: Reports Normal hearing present, Denies headache(s) and Denies neck pain Cardiovascular: Cardiovascular: Denies chest pain and Denies dyspnea Respiratory: Respiratory: Denies dyspnea Gastrointestinal: Gastrointestinal: Reports no additional gastrointestinal complaints Genitourinary: Genitourinary: Denies dysuria Musculoskeletal: Musculoskeletal: Denies neck pain Integumentary/Breasts: Skin/Breast: Denies dry skin Neurologic: Reports Normal hearing present, Denies headache(s) and Denies weakness Psychiatric: Psychiatric: Denies anxiety Endocrine: Endocrine: Denies change in body appearance Hematologic/Lymphatic: Hematologic/Lymphatic: Denies easy bleeding Allergic/Immunologic: Allergic/Immunologic: Denies urticaria PMF Past Medical History Medical History (Updated 08/21/22 @ 08:31 by Rojas Meneses MD) Colon cancer screening Coronary artery disease Hx of myocardial infarction 2012 Hyperlipidemia Hypertension Surgical History Surgical History H/O umbilical hernia repair 05/18/21 Repair umbilical hernia with 6.6 cm Parietex underlay mesh Stented coronary artery x2 Family History Family History Father Heart disease Metaplastic carcinoma Diabetes mellitus Mother Skin cancer Arthritis Sibling Heart disease Unknown Diabetes mellitus Heart disease Hypertension Social History Social History Smoking packs per day: 2 Smoking cigarettes per day: 40.0 Years smoked: 21 Smoking pack-years: 42.00 Smoking status: Former smoker Tobacco type: cigarettes Second hand tobacco smoke exposure: No Additional smoking assessment comments: quit in 2010 used to smoke 2 ppd for approximately 18 years Alcohol intake: current Drinks per week: 5 Alcohol use details: weekly usage varies Substance use: current Substance use type: marijuana Last use: uses gummies daily (was very vague when answering these questions) Living arrangements: with family Additional living arrangements comments: lives with and kids Gender identity (if verbalized by the patient): Male Spiritual care concerns: No Meds Home Medications and Allergies Home Medications Medication Instructions Recorded Confirmed Type aspirin 81 mg tablet,delayed 81 mg PO DAILY 02/02/20 08/21/22 History release atorvastatin 40 mg tablet 20 mg PO DAILY 02/02/20 08/21/22 History evolocumab 140 mg/mL subcutaneous 140 mg subcut DIRECTED 02/02/20 08/21/22 History pen injector (Adrian King) lisinopril 20 mg tablet 10 mg PO DAILY 02/02/20 08/21/22 History metoprolol tartrate 25 mg tablet 12.5 mg PO BID 02/02/20 08/21/22 History ticagrelor 60 mg tablet (Brilinta) 60 mg PO BID 02/02/20 08/21/22 History fluticasone propionate 50 1 spray intranasal DAILY PRN 03/24/21 08/21/22 History mcg/actuation nasal allergies spray,suspension buspirone 7.5 mg tablet 7.5 mg PO BID 07/14/22 08/21/22 History cholecalciferol (vitamin D3) 125 10,000 unit PO DAILY 07/14/22 08/21/22 History mcg (5,000 unit) tablet (Vitamin D3) escitalopram oxalate 10 mg tablet 10 mg PO DAILY 07/14/22 08/21/22 History Allergies Allergy/AdvReac Type Severity Reaction Status Date / Time No Known Allergies Allergy Verified 08/21/22 07:47 Vital Signs Vital Signs - 24 hr 08/21/22 07:40 T
[2022-08-21 08:45] VITALS: BP 115/67; PULSE 54; RESP 14; O2SAT 97
[2022-08-21 08:55] VITALS: BP 112/72; PULSE 51; RESP 12; O2SAT 97
[2022-08-21 09:05] VITALS: BP 145/83; PULSE 88; RESP 22; O2SAT 99
== END 2022-08-21 09:09 | disposition home or self-care (01) ==
PROVIDERS: PCP Emergency Medicine; Visit Provider Internal Medicine Gastroenterology
PROC: 0DJD8ZZ Inspection of Lower Intestinal Tract, Via Natural or Artificial Opening Endoscopic (ICD-10-PCS; CPT 45378; principal; 2022-08-21 09:00)
DX: Z12.11 Encounter for screening for malignant neoplasm of colon (principal); I25.10 Atherosclerotic heart disease of native coronary artery without angina pectoris; I25.2 Old myocardial infarction; I10 Essential (primary) hypertension; E78.5 Hyperlipidemia, unspecified; Z95.5 Presence of coronary angioplasty implant and graft; Z79.82 Long term (current) use of aspirin; Z79.01 Long term (current) use of anticoagulants; Z79.899 Other long term (current) drug therapy; Z87.891 Personal history of nicotine dependence; F12.90 Cannabis use, unspecified, uncomplicated; E66.9 Obesity, unspecified; Z68.28 Body mass index [BMI] 28.0-28.9, adult
CPT/HCPCS: 45378; J2704; J7120

== ENCOUNTER 2024-04-14 11:49 | Outpatient (CLI) | payer OTHER, SELFPAY ==
--- NOTE | ~2024-04-14 | CT_ITS ---
EXAMINATION: CT lung screening DATE: 04/14/2024 12:17 INDICATION: NICOTINE DEPENDENCE TECHNIQUE: Computed tomography (CT) of the chest was performed without intravenous contrast. Addition al 3D reconstructions utilizing coronal maximum intensity projection (MIP) were performed. Automated exposure control and iterative reconstruction technique were employed. The dose-length product was 23 8.46 mGy-cm. COMPARISON: None FINDINGS: There are few scattered bilateral calcific pulmonary nodules along with calcified right hilar lymph n odes consistent with old granulomatous disease. 3 mm noncalcified nodule along the left major fissure . No other suspicious pulmonary nodules, pulmonary edema, pneumonia or pleural effusion. Heart size n ormal. Atherosclerotic coronary artery calcific disease. No pericardial effusion. Thoracic aorta is n ormal in caliber. No pathologically enlarged thoracic lymphadenopathy. Visualized upper abdomen is un remarkable. Mild to moderate thoracic spondylosis with chronic appearing mild anterior wedging at T7- T10. IMPRESSION: 1. Lung-RADS category 2: Benign appearance or behavior. Continue annual screening with noncontrast lo w-dose chest CT in 12 months. Reviewed, dictated and finalized at location A. IMPRESSION: 1. Lung-RADS category 2: Benign appearance or behavior. Continue annual screeni ng with noncontrast low-dose chest CT in 12 months.
== END 2024-04-14 11:50 ==
LOC: MICIMG 11:50
PROVIDERS: PCP Emergency Medicine; Visit Provider Emergency Medicine
DX: Z12.2 Encounter for screening for malignant neoplasm of respiratory organs (principal); Z87.891 Personal history of nicotine dependence
CPT/HCPCS: 71271

== ENCOUNTER 2024-06-16 02:32 | Day surgery (SDC) | payer OTHER, SELFPAY ==
[2024-06-16] VITALS (21 sets, daily range): BP systolic 131–153; BP diastolic 69–99; PULSE 49–78; RESP 12–18; TEMP 36.3–36.6; O2SAT 95–99; BMI 32.1
[2024-06-16 09:00] LABS: Basophils Percent Auto 0.8 % (0.2-1.2); Eosinophils Absolute Auto 0.1 K/mm3 (0-0.3); Eosinophils Percent Auto 1.7 % (0-4.4); Hemoglobin 14.3 g/dL (14.0-18.0); Immature Granulocyte Absolute 0.05 K/mm3 (0.00-0.031); Immature Granulocyte Percent A 1.4 % (0-0.5); Lymphocytes Absolute Auto 1.01 K/mm3 (0.9-3.2); Lymphocytes Percent Auto 27.9 % (18.3-44.2); Mean Corpuscular Hemoglobin 28.7 pg (26-34); Mean Corpuscular Volume 84.2 fl (80-100); Mean Platelet Volume 9.2 fl (7.4-10.4); Monocytes Absolute Auto 0.5 K/mm3 (0.1-0.6); Monocytes Percent Auto 14.6 % (2.6-8.5); Neutrophils Absolute Auto 1.9 K/mm3 (1.3-6.7); Neutrophils Percent Auto 53.6 % (45.5-73.1); Platelet Count Result 233 k/mm3 (150-375); Red Blood Count 4.99 M/mm3 (4.6-6.20); Red Cell Distribution Width 14.3 % (11.5-14.5); White Blood Count 3.6 K/mm3 (4.5-10.0)
[2024-06-16 09:11] LABS: Anion Gap 8 mmol/L (4-12); Blood Urea Nitrogen 16 mg/dL (9-20); Calcium 9.2 mg/dL (8.4-10.2); Carbon Dioxide 25 mmol/L (22-30); Chloride 101 mmol/L (98-107); Estimated CRCL calculation 111 ml/min; Estimated Glomerular Filt Rate > 60; Glucose 97 mg/dL (65-110); Potassium 4.1 mmol/L (3.4-5.0); Sodium 134 mmol/L (137-145)
--- NOTE | 2024-06-16 12:52 | WPDMODSED ---
Moderate Sedation Note-Pt Data Patient Data Diagnosis: Abnormal nuclear stress test coronary disease with previous stenting of the LAD Present Complaint: recent episode of chest pain abnormal nuclear stress test Procedure to be performed/Plan: left heart catheterization Allergies Allergy/AdvReac Type Severity Reaction Status Date / Time No Known Allergies Allergy Verified 06/16/24 09:01 Home Medications Medication Instructions Recorded Confirmed Type aspirin 81 mg tablet,delayed 81 mg PO DAILY 02/02/20 06/16/24 History release atorvastatin 40 mg tablet 20 mg PO DAILY 02/02/20 06/16/24 History evolocumab 140 mg/mL subcutaneous 140 mg subcut DIRECTED 02/02/20 06/16/24 History pen injector (Adrian King) lisinopril 20 mg tablet 10 mg PO DAILY 02/02/20 06/16/24 History metoprolol tartrate 25 mg tablet 12.5 mg PO BID 02/02/20 06/16/24 History ticagrelor 60 mg tablet (Brilinta) 60 mg PO BID 02/02/20 06/16/24 History fluticasone propionate 50 1 spray intranasal DAILY PRN 03/24/21 06/16/24 History mcg/actuation nasal allergies spray,suspension buspirone 7.5 mg tablet 7.5 mg PO BID 07/14/22 06/16/24 History Current Medications: Active Medications Sodium Chloride (Normal Saline Iv) 500 mls @ 100 mls/hr IV CONT .Q5H [facility] Sedation/Anesthesia: No previous sedation/anesthesia problems (including family history). [facility] Past Medical History Medical History (Updated 08/21/22 @ 08:31 by Rojas Meneses MD) Colon cancer screening Coronary artery disease Hx of myocardial infarction 2011 Hyperlipidemia Hypertension Surgical History Surgical History H/O umbilical hernia repair 05/18/21 Repair umbilical hernia with 6.6 cm Parietex underlay mesh Stented coronary artery x2 Family History Family History Father Heart disease Metaplastic carcinoma Diabetes mellitus Mother Skin cancer Arthritis Sibling Heart disease Unknown Diabetes mellitus Heart disease Hypertension Social History Social History Smoking packs per day: 2 Smoking cigarettes per day: 40.0 Years smoked: 21 Smoking pack-years: 42.00 Smoking status: Former smoker Tobacco type: cigarettes Second hand tobacco smoke exposure: No Additional smoking assessment comments: quit in 2010 used to smoke 2 ppd for approximately 18 years Alcohol intake: current Drinks per week: 5 Alcohol use details: weekly usage varies Substance use: current Substance use type: marijuana Last use: uses gummies daily (was very vague when answering these questions) Living arrangements: with family Additional living arrangements comments: lives with and kids Occupation/Education: occupation Gender identity (if verbalized by the patient): Male Spiritual care concerns: No Mod Sed Physical Exam Physical Exam Pre Procedural Exam: Normal: Appearance ( white male appearing somewhat older than stated age), Neck, Throat, Airway, Lungs, Heart Size, Heart Rate, Heart Rhythm, Neuro Exam and Extremities Hours since solid foods: 12 Hours since liquid intake: 12 Mallampati Classification: class III Internal Medicine - PN: Obj Da Vital Signs Vital Signs: Vital Signs - 24 hr 06/16/24 08:30 Temperature 36.6 C Pulse Rate 78 Respiratory Rate 12 Blood Pressure 153/85 H Pulse Oximetry 99 Oxygen Delivery Room Air Intake/Output Intake/Output: Intake & Output 06/13/24 06/14/24 06/15/24 06/16/24 23:59 23:59 23:59 23:59 Intake Total 0 Output Total 0 Balance 0 Meds/Results Medications: Active Medications Generic Name Dose Route Start Last Admin Trade Name Freq PRN Reason Stop Dose Admin Sodium Chloride 500 mls @ 100 mls/hr 06/16/24 08:30 Normal Saline Iv IV CONT .Q5H [facility]
--- NOTE | 2024-06-16 13:19 | WPDCARDPROC ---
Cardiac Cath Procedure Note Date of procedure:: 06/16/24 Performing physician:: Urban Patricio MD Indication:: abnormal nuclear stress test recent episode of chest pain coronary disease with previous PCI Brief clinical history:: this is a 53-year-old man known to have coronary disease who underwent stenting of a long segment of his LAD in the remote past. he recently reported episode of some chest pain which occurred as an outpatient and was self-limited he is not having exertional angina in a typical fashion. A nuclear stress test was done in the office it was felt to be abnormal prompting recommendation for follow-up angiography. Procedure Procedure performed:: Left ventriculogram coronary angiogram femoral artery angiogram Sedation/Medication given:: fentanyl 50 mg Versed 2 mg case start time 1:00 p.m. case end time 1:15 p.m. sedation provided by Aparna Becerril RN, trained observer Access site:: right femoral artery Estimated blood loss:: 30 cc Procedure note:: patient was brought to the cardiac catheterization lab in the postabsorptive state where the right femoral triangle was prepped and draped in the usual fashion. 1% lidocaine was infiltrated locally and following this the femoral artery was punctured and a 5 Ghanaian vascular sheath was placed. Following placement of the 5 Ghanaian sheath there was a moderate amount of oozing around the puncture site and I made the decision to upsize this to a 6 Ghanaian sheath. Following this and manual pressure there was no further hemorrhage around the sheath. following this a 5 Ghanaian angled pigtail catheter was used to perform left ventriculography in the 30 degree RODRIGUEZ projection and to measure left sided central hemodynamics. The left coronary artery was injected using a 5 Ghanaian FL4 catheter. The right coronary was engaged and injected using a 5 Ghanaian JR4 catheter. The cineangiograms were then reviewed and the case was terminated. An angiogram was done of the femoral artery sheath. The puncture site was in the SFA and so an Angio-Seal device was not deployed. He was taken to the holding area for manual sheath removal. 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 Findings:: Hemodynamics: Central aortic pressure is 142 over 76 left ventricle 142/0 end-diastolic 15 there is no gradient on pullback across the aortic valve. Left ventricle: The LV is normal in size all segments contract appropriately the global ejection fraction is 55-60% by visual estimation there were no regional wall motion abnormalities. The left main coronary artery is short and nicely patent the left anterior descending is a medium caliber artery extending down to the apex there is a long segment of stent material in the proximal 3rd of the LAD which remains patent with no significant loss of lumen. There is mild luminal irregularity throughout the LAD but no flow-limiting lesions. The 1st septal perforating complex takes its origin in the stented segment and has an ostial 80-90% stenosis which is jailed by the stent. Angiographically this has no change in appearance compared to previous study in 2021. The circumflex is a moderate caliber artery giving rise to the marginal branch is and is codominant to the posterior wall. The circumflex has modest 30% plaque in the proximal segment. There is knows otherwise no significant flow-limiting disease in the remainder of the circumflex or its posterior branches the right coronary artery is small to medium in caliber it is codominant terminating in an RPDA. There are minimal luminal irregularities in the RCA but no flow-limiting disease. Conclusion:: 1. codominant coronary circulation with no significant stenotic lesions other than 80-90% stenosis in the ostium of the septal perforating complex as described above 2. previously deployed stent m
== END 2024-06-16 21:09 | disposition home or self-care (01) ==
PROVIDERS: PCP Emergency Medicine; Visit Provider Specialist
PROC: 4A023N7 Measurement of Cardiac Sampling and Pressure, Left Heart, Percutaneous Approach (ICD-10-PCS; CPT 93452; principal; 2024-06-16 10:00)
DX: I25.10 Atherosclerotic heart disease of native coronary artery without angina pectoris (principal); R94.39 Abnormal result of other cardiovascular function study; I25.2 Old myocardial infarction; I10 Essential (primary) hypertension; E78.5 Hyperlipidemia, unspecified; Z95.5 Presence of coronary angioplasty implant and graft; Z87.891 Personal history of nicotine dependence; F12.90 Cannabis use, unspecified, uncomplicated; Z79.82 Long term (current) use of aspirin; Z79.01 Long term (current) use of anticoagulants
CPT/HCPCS: 36415; 80048; 85025; 93458; C1887; C1894; J0461; J1644; J2250; J3010; J7040